=== PATIENT | female | born 1935 | race Two or more races ===

== ENCOUNTER 2018-02-05 15:52 | Outpatient (CLI) | payer OTHER | END 2018-02-05 16:01 | disposition home or self-care (01) | LOC: RAD 15:52 | DX: I10 Essential (primary) hypertension (principal) ==

== ENCOUNTER → 2018-02-07 | Outpatient (CLI) | payer OTHER | END | disposition home or self-care (01) | LOC: NUCLEAR 01-30 11:00 | DX: M81.0 Age-related osteoporosis without current pathological fracture (principal) ==

== ENCOUNTER 2018-05-29 13:32 | Outpatient (CLI) | payer OTHER | END 2018-05-29 13:52 | disposition home or self-care (01) | LOC: RAD 13:32 | DX: J44.9 Chronic obstructive pulmonary disease, unspecified (principal); M19.012 Primary osteoarthritis, left shoulder; M12.812 Other specific arthropathies, not elsewhere classified, left shoulder ==

== ENCOUNTER 2019-07-01 05:48 | Emergency (ER) | payer OTHER ==
[~2019-07-01] VITALS: Ht 152.4 cm; Wt 76.7 kg
[2019-07-01] MEDS ORDERED: TENORMIN25 MG (06:11)
[2019-07-01] MEDS ORDERED: ATORVASTATIN CA10 MG (06:11)
[2019-07-01] MEDS ORDERED: PREVACID15 MG (06:11)
[2019-07-01] MEDS ORDERED: CARAFATE1 GM (06:12)
[2019-07-01] MEDS ORDERED: HYDROXYCHLOROQ100 GM (06:12)
[2019-07-01] MEDS ORDERED: CEVIMELINE HCL30 MG (06:12)
[2019-07-01] MEDS ORDERED: NEPRO CARB STE237 ML (06:13)
== END 2019-07-01 09:20 | disposition home or self-care (01) ==
LOC: ER 05:48
DX: B34.9 Viral infection, unspecified (principal)